=== PATIENT | female | born 2000 | race Caucasian/White ===

== ENCOUNTER 2021-09-02 04:54 | Emergency (ER) | payer OTHER ==
[~2021-09-02] VITALS: Ht 152.4 cm; Wt 65.8 kg
[~2021-09-02 04:54] MED LIST: DUCODYL5 MG PO; EX-LAX15 MG PO; GOLYTELY SOLU4000 ML PO; ONDANSETRON ODT4 MG PO; ZOFRAN ODT4 MG PO
[2021-09-02] MEDS ORDERED: ETONOGESTREL-E1 EACH VAGINAL (05:11)
[2021-09-02] MEDS ORDERED: ONDANSETRON ODT8 MG PO (06:40)
== END 2021-09-02 07:00 | disposition home or self-care (01) ==
LOC: ED 04:54
DX: U07.1 COVID-19 (principal); R11.2 Nausea with vomiting, unspecified; Z88.0 Allergy status to penicillin
CPT/HCPCS: 36415; 80053; 81001; 83690; 84703; 85025; 87502; 96361; 96374; 99284-25; A9270; C9803; J2405; J7030; U0003

== ENCOUNTER 2024-02-09 19:28 | Emergency (ER) | payer OTHER ==
[~2024-02-09] VITALS: Ht 152.4 cm; Wt 53.0 kg
[~2024-02-09 19:28] MED LIST changes: +ETONOGESTREL-E1 EACH VAGINAL; +ONDANSETRON ODT8 MG PO
[2024-02-09 21:33] LABS: BASOPHILS 0.4 % (0-2); EOSINOPHILS 0.2 % (0-6); HEMATOCRIT 41.9 % (35.0-50.0); HEMOGLOBIN 13.9 g/dL (12.0-18.0); LYMPHOCYTES 24.1 % (24-44); MCH 33.6 (27-36); MCHC 33.3 g/dl (30-36); MCV 101.1 fl (81-99); MONOCYTES 5.2 % (0-12); NEUTROPHILS 70.1 % (39-80); PLATELET COUNT 223 K/uL (140-440); RBC 4.15 M/ul (4.3-5.7)
[2024-02-09 21:48] LABS: ALBUMIN 3.9 g/dL (3.4-5.0); ALBUMIN/GLOBULIN RATIO 1.22 (1.1-2.4); ANION GAP 12.8 (7-21); BILIRUBIN, TOTAL 1.1 ng/dL (0.2-1.0); BUN/CREATININE RATIO 17.14 (6.0-28.6); CALCIUM 8.9 mg/dL (8.5-10.1); CREATININE, SERUM 0.7 mg/dL (0.55-1.02); MAGNESIUM 2.1 mg/dL (1.8-2.4); POTASSIUM 3.8 mmol/L (3.5-5.1); PROTEIN, TOTAL 7.1 g/dL (6.4-8.2)
[2024-02-09 22:52] VITALS: BP 105/54
--- NOTE | 2024-02-11 11:38 | EKG ---
[facility] [address] [facility] [place] [address] Signed Normal sinus rhythm with sinus arrhythmia Normal ECG No previous ECGs available Confirmed by Pranav Pollack MD ([id number]) on 02/11/2024 11:37:43 AM Electronically Signed By: PRANAV POLLACK MD 02/11/24 1138 PATIENT NAME: YAMILET HOLLOWAY Electrocardiogram DATE OF : [birth year] PHYSICIAN: PRANAV POLLACK MD REPORT #: [id number] REPORT IS CONFIDENTIAL AND NOT TO BE RELEASED WITHOUT AUTHORIZATION
== END 2024-02-09 22:53 | disposition home or self-care (01) ==
LOC: ED 19:28
PROVIDERS: Internal Medicine
DX: R55 Syncope and collapse (principal); Z88.0 Allergy status to penicillin
CPT/HCPCS: 36415; 80053; 83735; 84703; 85025; 93005; 93010; 99284

== ENCOUNTER 2024-03-28 22:28 | Emergency (ER) | payer OTHER ==
[2024-03-28 22:52] VITALS: BP 130/81
[2024-03-30 08:45] LABS: HEPATITIS B SURFACE ANTIBODY <3.10 IU/L (())
[2024-03-30 10:22] LABS: HIV 1,2 COMBO ANTIGEN/ANTIBODY Negative (Negative)
[2024-03-30 13:20] LABS: HEPATITIS C AB CIA INTERP Negative (Negative); HEPATITIS C ANTIBODY CIA INDEX 0.13 IV (())
== END 2024-03-28 22:53 | disposition home or self-care (01) ==
LOC: ED 22:28
PROVIDERS: Family Medicine
DX: S61.032A Puncture wound without foreign body of left thumb without damage to nail, initial encounter (principal); W46.0XXA Contact with hypodermic needle, initial encounter; Z88.0 Allergy status to penicillin
CPT/HCPCS: 36415; 84460; 86706; 86803; 99283